=== PATIENT | male | born 1980 | race Two or more races ===

== ENCOUNTER → 2021-10-26 10:36 | Outpatient (BNVA) | payer BC, SELFPAY | PROVIDERS: PCP Family Medicine; Visit Provider Family Medicine | DX: Z80.42 Family history of malignant neoplasm of prostate (principal); Z83.3 Family history of diabetes mellitus | CPT/HCPCS: 80053; 80061; 84153; 85025 ==

== ENCOUNTER 2024-04-28 11:23 | Outpatient (CLI) | payer BC, SELFPAY ==
--- NOTE | 2024-04-28 11:27 | XR_ITS ---
WS: [id number] XR abdomen 1V* [id number] REASON FOR EXAM: left lower quad pain / ureterolithiasis FINDINGS: Bowel gas pattern is unremarkable. No free air or retroperitoneal air. No mass or organomegaly identified. No urinary tract calculi are identified. XR/XR abdomen 1V* [id number] IMPRESSION: No significant abnormality.
== END 2024-04-28 11:24 | disposition home or self-care (01) ==
LOC: RAD 11:24
PROVIDERS: PCP Family Medicine; Visit Provider Family Medicine
DX: R10.32 Left lower quadrant pain (principal); N20.1 Calculus of ureter
CPT/HCPCS: 74018; 81000

== ENCOUNTER → 2024-07-03 09:42 | Outpatient (BNVA) | payer BC, SELFPAY | PROVIDERS: PCP Family Medicine; Visit Provider Family Medicine | DX: R30.0 Dysuria (principal) | CPT/HCPCS: 81000 ==